=== PATIENT | male | born 1980 | race Caucasian/White ===

== ENCOUNTER 2024-10-04 10:54 | Inpatient (IN) | payer OTHER ==
[2024-10-04] MEDS ORDERED: LORazepam 2 MG/ML INJ IV PRN (11:17)
[2024-10-04] MEDS: SODIUM CHLORIDE 0.9% 1,000 ML IV STA ×2 (11:27→12:18)
[2024-10-04] MEDS: LORazepam 2 MG/ML INJ IV STA (11:28)
[2024-10-04] MEDS: ONDANSETRON 4 MG/2 ML VIAL IVP STA (11:31)
[2024-10-04 11:46] LABS: Basophils # (A) 0.1 k/uL (0-0.2); Basophils % (A) 1 %; Eosinophils # (A) 0.2 k/uL (0-0.7); Eosinophils % (A) 3 %; HCT 45.3 % (39.0-53.0); HGB 15.5 gm/dL (13.0-17.5); Lymphocytes # (A) 1.1 k/uL (1.0-4.8); Lymphocytes % (A) 15 %; MCH 38.5 pg (25.0-35.0); MCHC 34.3 g/dL (31.0-37.0); MCV 112.4 fL (80.0-100.0); Macrocytosis Marked; Mean Platelet Volume 9.9; Monocytes # (A) 0.2 k/uL (0-1.0); Monocytes % (A) 3 %; Neutrophils # (A) 5.8 k/uL (1.3-7.7); Neutrophils % (A) 77 %; RBC 4.03 m/uL (4.30-5.90); RDW 14.4 % (11.5-15.5); WBC 7.4 k/uL (3.8-10.6)
[2024-10-04 11:54] LABS: ALT 22 U/L (4-49); AST 56 U/L (17-59); African American GFR (CKD) >90 (>60 ml/min/1.73 sqM); Albumin 4.7 g/dL (3.5-5.0); Alcohol 18 mg/dL; Alkaline Phosphatase 77 U/L (38-126); Anion Gap 16 mmol/L; Blood Urea Nitrogen 8 mg/dL (9-20); Calcium 9.2 mg/dL (8.4-10.2); Carbon Dioxide 22 mmol/L (22-30); Chloride 97 mmol/L (98-107); Glucose 88 mg/dL (74-99); Non-African American GFR(CKD) >90 (>60 ml/min/1.73 sqM); Sodium 135 mmol/L (137-145); Total Bilirubin 1.5 mg/dL (0.2-1.3); Total Protein 7.2 g/dL (6.3-8.2)
[2024-10-04 12:09] LABS: Platelet Count 89 k/uL (150-450)
[2024-10-04] MEDS ORDERED: NALOXONE 0.4 MG/ML 1 ML VIAL IV PRN (13:12)
[2024-10-04] MEDS ORDERED: IBUPROFEN 400 MG TAB PO PRN (13:12)
[2024-10-04] MEDS ORDERED: ONDANSETRON 4 MG/2 ML VIAL IVP PRN (13:12)
--- NOTE | 2024-10-04 13:14 | ED ---
General Adult HPI - General Chief complaint: Psychiatric Symptoms Stated complaint: Mental health Time Seen by Provider: 10/04/24 10:55 Source: patient, RN notes reviewed, old records reviewed Mode of arrival: ambulatory Limitations: no limitations - History of Present Illness Initial comments: Patient is a 44-year-old male who presents emergency department for suicidal ideations. Was brought in by his father. Has a history of scleroderma. Has been having suicidal ideations as well as states he thought about cutting himself in the neck however he was too shaky when he attempted it. Has a very superficial abrasion to the left neck but no other obvious injuries. States he did this yesterday or the day before. Does drink alcohol every day. Believes he is going through withdrawals. Denies any hallucinations however patient's father was concern for hallucinations for the patient. He denies any homicidal ideations, attempts, plans. Patient states he hears voices. Presents for further evaluation at this time. - Related Data Home Medications Medication Instructions Recorded Confirmed No Known Home Medications 10/04/24 10/04/24 Allergies Allergy/AdvReac Type Severity Reaction Status Date / Time No Known Allergies Allergy Verified 10/04/24 14:16 Review of Systems ROS Statement: Those systems with pertinent positive or pertinent negative responses have been documented in the HPI. Review of Systems: CONST: Denies fever EYES: Denies blurry vision ENT: Denies nasal congestion C/V: Denies Chest pain RESP: Denies shortness of breath GI: Denies abdominal pain : Denies dysuria SKIN: Denies rash. MSK: Denies joint pain. NEURO: Denies headache ROS Other: All systems not noted in ROS Statement are negative. Past Medical History Past Medical History: Rheumatoid Arthritis (RA) History of Any Multi-Drug Resistant Organisms: None Reported Past Surgical History: No Surgical Hx Reported Past Psychological History: Anxiety Smoking Status: Current every day smoker Past Alcohol Use History: Heavy Past Drug Use History: Marijuana General Exam - General Exam Comments Initial Comments: General: Appears in acute alcohol withdrawals. Tremors, tongue fasciculations, tachycardia. HEAD: Normal with no signs of head trauma. EYES: PERRLA, EOMI, conjunctiva normal, no discharge. Pulls are 3 mm and equal bilaterally. ENT: Hearing grossly intact, normal oropharynx. RESPIRATORY: Clear breath sounds bilaterally. No wheezes, rales, or rhonchi. C/V: Regular rate and rhythm. S1 and S2 auscultated, no edema, peripheral pulses 2+ and intact throughout ABD: Abd is soft, nontender, nondistended EXT: Normal range of motion, no obvious acute deformity. Patient has chronic deformities from scleroderma. SKIN: No rashes or lesions observed on exposed skin. NEURO: Alert and oriented x 4. Cranial nerves II-XII intact. No focal sensory or strength deficits. Limitations: no limitations Course Vital Signs 10/04/24 10/04/24 10/04/24 10:56 12:15 14:42 Temperature 99.1 F 98.9 F 98.7 F Pulse Rate 148 H 109 H 99 Respiratory 20 18 18 Rate Blood Pressure 147/114 166/104 142/132 O2 Sat by Pulse 97 100 98 Oximetry 10/04/24 15:22 Temperature Pulse Rate 92 Respiratory 18 Rate Blood Pressure 180/95 O2 Sat by Pulse 96 Oximetry Medical Decision Making - Medical Decision Making Was pt. sent in by a medical professional or institution (, PA, INSURANCE AGENT, urgent care, hospital, or care home...) When possible be specific @ -No Did you speak to anyone other than the patient for history (EMS, parent, family, police, friend...)? What history was obtained from this source @ -Patient's father is at bedside and assist with patient's past medical history. Did you review nursing and triage notes (agree or disagree)? Why? @ -I reviewed and agree with nursing and triage notes Were old charts reviewed (outside hosp., previous admission, EMS record, old EKG, old radiological studies, urgent care reports/EKG's, care home records)? Report findings @ -No old charts were reviewed Differential Diagnosis (chest pain, altered mental status, abdominal pain women, abdominal pain men, vaginal bleeding, weakness, fever, dyspnea, syncope, headache, dizziness, GI bleed, back pain, seizure, CVA, palpatations, mental health, musculoskeletal)? @ -Differential Mental Health Depression, anxiety, bipolar, psychosis, schizophrenia, borderline personality, situational depression, adjustment disorder, behavioral disorder, brain tumor, malingering, substance abuse, encephalopathy, medication reaction, dementia, hypothyroidism, degenerative neurologic disorder, lupus.... This is not meant to be all-inclusive list. Also includes alcohol withdrawal EKG interpreted by me (3pts min.). @ -As above X-rays interpreted by me (1pt min.). @ -None done CT interpreted by me (1pt min.). @ -None done U/S interpreted by me (1pt. min.). @ -None done What testing was considered but not performed or refused? (CT, X-rays, U/S, labs)? Why? @ -None What meds were considered but not given or refused? Why? @ -None Did you discuss the management of the patient with other professionals (professionals i.e. DrChapo, PA, INSURANCE AGENT, lab, RT, psych nurse, bilingual social worker, fast food server, teacher, motorcycle police officer, residential case manager)? Give summary @ -Discussed with the accepting physician, Dr. Hadley who accepted the admission. Was smoking cessation discussed for >3mins.? @ -No Was critical care preformed (if so, how long)? @ -No Were there social determinants of health that impacted care today? How? (Homelessness, low income, unemployed, alcoholism, drug addiction, transportation, low edu. Level, literacy, decrease access to med. care, prison, rehab)? @ -No Was there de-escalation of care discussed even if they declined (Discuss DNR or withdrawal of care, Hospice)? DNR status @ -No What co-morbidities impacted this encounter? (DM, HTN, Smoking, COPD, CAD, Cancer, CVA, ARF, Chemo, Hep., AIDS, mental health diagnosis, sleep apnea, morbid obesity)? @ -Alcohol abuse Was patient admitted / discharged? Hospital course, mention meds given and route, prescriptions, significant lab abnormalities, going to OR and other pertinent info. @ -Patient presents for mental health evaluation but also appears to be in alcohol withdrawals. Suicide precautions ordered. Sitter ordered. CIWA is greater than 10 initially. Did improve following Ativan administration. Patient also administered IV fluids. Workup remarkable for alcohol level of 18. Otherwise relatively unremarkable except for hypomagnesemia which she was given replenishment for. EKG shows no signs of acute ischemia. I did recommend admission for alcohol withdrawals and monitoring and then inpatient psychiatric evaluation. Patient and patient's father are in agreement with this plan. I spoke with the admitting provider, Dr. Hadley from [facility] who accepted the admission. Consult placed to psychiatry. Patient placed on CIWA protocol. Undiagnosed new problem with uncertain prognosis? @ -No Drug Therapy requiring intensive monitoring for toxicity (Heparin, Nitro, Insulin, Cardizem)? @ -No Were any procedures done? @ -No Diagnosis/symptom? @ -Alcohol withdrawals, suicidal ideations Acute, or Chronic, or Acute on Chronic? @ -Acute Uncomplicated (without systemic symptoms) or Complicated (systemic symptoms)? @ -Complicated Side effects of treatment? @ -No Exacerbation, Progression, or Severe Exacerbation? @ -No Poses a threat to life or bodily function? How? (Chest pain, [place], [place], pneumonia, PE, COPD, DKA, ARF, appy, cholecystitis, CVA, Diverticulitis, Homicidal, Suicidal, threat to staff... and all critical care pts) @ -Yes - Lab Data Result diagrams: 10/04/24 11:38 10/04/24 11:38 Lab Results 10/04/24 10/04/24 Range/Units 11:38 11:38 WBC 7.4 (3.8-10.6) k/uL RBC 4.03 L (4.30-5.90) m/uL Hgb 15.5 (13.0-17.5) gm/dL Hct 45.3 (39.0-53.0) % MCV 112.4 H (80.0-100.0) fL MCH 38.5 H (25.0-35.0) pg MCHC 34.3 (31.0-37.0) g/dL RDW 14.4 (11.5-15.5) % Plt Count 89 L (150-450) k/uL MPV 9.9 Neutrophils % 77 % Lymphocytes % 15 % Monocytes % 3 % Eosinophils % 3 % Basophils % 1 % Neutrophils # 5.8 (1.3-7.7) k/uL Lymphocytes # 1.1 (1.0-4.8) k/uL Monocytes # 0.2 (0-1.0) k/uL Eosinophils # 0.2 (0-0.7) k/uL Basophils # 0.1 (0-0.2) k/uL Manual Slide Review Performed Macrocytosis Marked A Sodium 135 L (137-145) mmol/L Potassium 4.0 (3.5-5.1) mmol/L Chloride 97 L (98-107) mmol/L Carbon Dioxide 22 (22-30) mmol/L Anion Gap 16 mmol/L BUN 8 L (9-20) mg/dL Creatinine 0.68 (0.66-1.25) mg/dL Est GFR (CKD-EPI)AfAm >90 (>60 ml/min/1.73 sqM) Est GFR (CKD-EPI)NonAf >90 (>60 ml/min/1.73 sqM) Glucose 88 (74-99) mg/dL Calcium 9.2 (8.4-10.2) mg/dL Magnesium 1.0 L (1.6-2.3) mg/dL Total Bilirubin 1.5 H (0.2-1.3) mg/dL AST 56 (17-59) U/L ALT 22 (4-49) U/L Alkaline Phosphatase 77 (38-126) U/L Total Protein 7.2 (6.3-8.2) g/dL Albumin 4.7 (3.5-5.0) g/dL Serum Alcohol 18 mg/dL - EKG Data -: EKG Interpreted by Me EKG Comments: 12-lead Electrocardiogram Interpretation Note EKG was reviewed and interpreted by myself. 12-lead ECG performed at 1212 is interpreted by me as revealing sinus tachycardia at a rate of 102 beats per minute. [place] is normal. [place] interval is 140 ms, QRS duration is 90 ms, QTc is 426 ms.. There were no ST or T wave abnormalities to suggest myocardial ischemia or injury. R wave progression across the precordium was satisfactory. By my interpretation this EKG is non-diagnostic for acute ischemia. Disposition Clinical Impression: Suicidal ideation, Alcohol withdrawal, Hypomagnesemia Disposition: ADMITTED IP TO THIS HOSP Condition: Stable Time of Disposition: 13:00
[2024-10-04] MEDS: MAGNESIUM SULFATE-D5W PMX 1 GM in DEXTROSE/WATER 1 100ML.BAG IVPB SCH ×2 (13:19→18:58)
[2024-10-04] MEDS: SODIUM CHLORIDE 0.9% 1,000 ML IV SCH (13:28)
--- NOTE | 2024-10-04 17:49 | P.HPIM ---
History of Present Illness H&P Date: 10/04/24 44 year old M with PMH of Scleroderma, EtOH abuse presents to the ED for suicidal ideation and alcohol withdrawal. Last drink was this morning. Drinks 1/5 hard liquor daily. He denies any headache, lower extremity edema, fever, chills, chest pain, SOB, palpitations, changes in urination or bowel habits. Reports some nausea but no vomiting. No numbness/weakness/tinging of the extremities. In the ED he underwent extensive evaluation. BP 147/114, HR 148, T 99.1F, RR 20, 97% on RA. CBC, CMP significant for RBC 4.03, MCV 112.4, Plt 89, Na 135, Cl 97, BUN 8, T. Bili 1.5. Mag 1.0. EtOH 18. EKG sinus tachycardia. Patient admitted for SI and EtOH withdrawal. General: non toxic, no distress, appears at stated age Derm: warm, dry Head: atraumatic, normocephalic, symmetric Eyes: EOMI, no lid lag, anicteric sclera Mouth: no lip lesion, mucus membranes moist Cardiovascular: S1 S2 tach. No murmurs Lungs: Clear to auscultation bilaterally, no accessory muscle use Ext: no gross muscle atrophy, no edema, contractured extremities Neuro: no focal neuro deficits Psych: Alert, oriented, appropriate affect Based on my assessment of this patient, this patient meets a high complexity level of care. EtOH withdrawal: CIWA protocol with Ativan PRN. Start Libirum 25 mg PO TID. Suicidal ideation: Suicidal precautions. Psyc consulted. Hypomagnesemia: 4g Mag sulfate x 1. Macrocytosis and Thrombocytopenia likely due to EtOH abuse CODE STATUS: FULL CODE DVT Prophylaxis: SCD GI Prophylaxis: Protonix 40 mg PO QD Designated medical POA if patient is not able to make medical decisions for themselves: I have reviewed the following talent consultant notes: ED note I have reviewed the results of the following tests: As above. I have ordered the following tests: CBC, CMP and Mag in the AM. I have discussed the care of this patient with the following independent historian: I have independently interpreted the following test below: EKG I have discussed the management of this patient with the following physician: ER provider. Past Medical History Past Medical History: Rheumatoid Arthritis (RA) History of Any Multi-Drug Resistant Organisms: None Reported Past Surgical History: No Surgical Hx Reported Past Psychological History: Anxiety Smoking Status: Current every day smoker Past Alcohol Use History: Heavy Past Drug Use History: Marijuana Medications and Allergies Home Medications Medication Instructions Recorded Confirmed Type No Known Home Medications 10/04/24 10/04/24 History Allergies Allergy/AdvReac Type Severity Reaction Status Date / Time No Known Allergies Allergy Verified 10/04/24 14:16 Physical Exam Vitals: Vital Signs Temp Pulse Resp BP Pulse Ox 10/04/24 17:20 87 18 149/92 98 10/04/24 15:22 92 18 180/95 96 10/04/24 14:42 98.7 F 99 18 142/132 98 10/04/24 12:15 98.9 F 109 H 18 166/104 100 10/04/24 10:56 99.1 F 148 H 20 147/114 97 Intake and Output 10/04/24 10/04/24 10/04/24 06:59 14:59 22:59 Other: Weight 45.359 kg Results CBC & Chem 7: 10/04/24 11:38 10/04/24 11:38 Labs: Abnormal Lab Results - Last 24 Hours (Table) 10/04/24 10/04/24 Range/Units 11:38 11:38 RBC 4.03 L (4.30-5.90) m/uL MCV 112.4 H (80.0-100.0) fL MCH 38.5 H (25.0-35.0) pg Plt Count 89 L (150-450) k/uL Macrocytosis Marked A Sodium 135 L (137-145) mmol/L Chloride 97 L (98-107) mmol/L BUN 8 L (9-20) mg/dL Magnesium 1.0 L (1.6-2.3) mg/dL Total Bilirubin 1.5 H (0.2-1.3) mg/dL
[2024-10-04] MEDS: LORazepam 2 MG/ML INJ IV PRN ×2 (19:06→23:53)
[2024-10-04] MEDS: chlordiazePOXIDE 25 MG CAP PO SCH (21:16)
[2024-10-05 00:32] LABS: Appearance,Urine Clear (Clear); Bilirubin,Urine Negative (Negative); Blood,Urine Negative (Negative); Color,Urine Yellow; Glucose,Urine (UA) Negative (Negative); Ketones,Urine Trace (Negative); Leukocyte Esterase,Urine Negative (Negative); Nitrite,Urine Negative (Negative); PH, Urine 6.5 (5.0-8.0); Protein,Urine Trace (Negative); Specific Gravity,Urine 1.017 (1.001-1.035)
[2024-10-05 00:44] LABS: Amphetamine Screen,Urine Not Detected (NotDetected); Barbiturate Screen,Urine Not Detected (NotDetected); Benzodiazepines Screen,Urine Detected (NotDetected); Cocaine Screen,Urine Not Detected (NotDetected); Methadone Screen, Urine Not Detected (NotDetected); Opiate Screen,Urine Not Detected (NotDetected); Oxycodone Screen, Urine Not Detected (NotDetected); Phencyclidine Screen,Urine Not Detected (NotDetected); Tricyclic Antidepressant,Urine Not Detected (NotDetected); Urn Cannabinoid Scrn Detected (NotDetected)
[2024-10-05] MEDS: PANTOPRAZOLE 40 MG TABLET PO SCH (06:58)
[2024-10-05 09:03] LABS: ALT 15 U/L (10-49); AST 50 U/L (14-35); Albumin 3.4 g/dL (3.8-4.9); Albumin/Globulin Ratio 2.27 Ratio (1.60-3.17); Alkaline Phosphatase 63 U/L (41-126); BUN/Creat Ratio 12.33 Ratio (12.00-20.00); Blood Urea Nitrogen 7.4 mg/dL (9.0-27.0); Carbon Dioxide 24.7 mmol/L (21.6-31.8); Chloride 101 mmol/L (96-109); Globulin 1.5 g/dL (1.6-3.3); Glucose 77 mg/dL (70-110); Potassium 3.4 mmol/L (3.5-5.5); Sodium 136 mmol/L (135-145); Total Bilirubin 1.2 mg/dL (0.3-1.2); Total Protein 4.9 g/dL (6.2-8.2)
[2024-10-05 11:23] LABS: Basophils # (A) 0.07 X 10*3/uL (0.00-0.10); Basophils % (A) 1.4 %; Eosinophils # (A) 0.23 X 10*3/uL (0.04-0.35); Eosinophils % (A) 4.6 %; HCT 36.2 % (39.6-50.0); HGB 12.4 g/dL (13.0-17.0); Immature Platelet Fraction 10.7 % (1.1-6.1); Lymphocytes # (A) 1.04 X 10*3/uL (0.90-5.00); Lymphocytes % (A) 20.6 %; MCH 38.3 pg (27.0-32.0); MCHC 34.3 g/dL (32.0-37.0); MCV 111.7 FL (80.0-97.0); Macrocytosis (M) 2+; Mean Platelet Volume 12.5 FL (9.5-12.2); Monocytes # (A) 0.34 X 10*3/uL (0.20-1.00); Monocytes % (A) 6.7 %; NRBC Per 100 WBC 0 X 10*3/uL (0.00-0.01); Neutrophils # (A) 3.34 X 10*3/uL (1.80-7.70); Neutrophils % (A) 66.3 %; Platelet Count 65 X 10*3/uL (140-440); RBC 3.24 X 10*6/uL (4.40-5.60); RDW 13.6 % (11.5-14.5); WBC 5.04 X 10*3/uL (4.50-10.00)
--- NOTE | 2024-10-05 11:46 | P.PN ---
Subjective Progress Note Date: 10/05/24 44 year old M with PMH of Scleroderma, EtOH abuse presents to the ED for suicidal ideation and alcohol withdrawal. Last drink was this morning. Drinks 1/5 hard liquor daily. He denies any headache, lower extremity edema, fever, chills, chest pain, SOB, palpitations, changes in urination or bowel habits. R eports some nausea but no vomiting. No numbness/weakness/tinging of the extremities. In the ED he underwent extensive evaluation. BP 147/114, HR 148, T 99.1F, RR 20, 97% on RA. CBC, CMP significant for RBC 4.03, MCV 112.4, Plt 89, Na 135, Cl 97, BUN 8, T. Bili 1.5. Mag 1.0. EtOH 18. EKG sinus tachycardia. Patient admitted for SI and EtOH withdrawal. 10/05 Patient was seen and examined. Sitter at bedside. CIWA 11. 2 mg of IV Ativan since admission. Currently on Librium 25 mg PO TID. CBC and CMP significant for RBC 3.24, Hg 12.4, HCT 36.2, MCV 111.7, Plt 65, K 3.4, BUN 7.4, Ca 8, AST 50, alb 3.4. Mag 2.1. BP 138/95, HR 96, RR 17, T 97.7F, 100% on RA. General: non toxic, no distress, appears at stated age Derm: warm, dry Head: atraumatic, normocephalic, symmetric Eyes: EOMI, no lid lag, anicteric sclera Mouth: no lip lesion, mucus membranes moist Cardiovascular: S1 S2 tach. No murmurs Lungs: Clear to auscultation bilaterally, no accessory muscle use Ext: no gross muscle atrophy, no edema, contractured extremities Neuro: no focal neuro deficits Psych: Alert, oriented, appropriate affect Based on my assessment of this patient, this patient meets a high complexity level of care. EtOH withdrawal: CIWA protocol with Ativan PRN. Continue Libirum 25 mg PO TID. Suicidal ideation: Suicidal precautions. Psyc consulted. Hypomagnesemia: 4g Mag sulfate x 1. Macrocytosis and Thrombocytopenia likely due to EtOH abuse CODE STATUS: FULL CODE DVT Prophylaxis: SCD GI Prophylaxis: Protonix 40 mg PO QD Designated medical POA if patient is not able to make medical decisions for themselves: I have reviewed the following product consultant notes: I have reviewed the results of the following tests: CBC, CMP, Mag. I have ordered the following tests: BMP in the AM. I have discussed the care of this patient with the following independent historian: BULMARO. I have independently interpreted the following test below: I have discussed the management of this patient with the following physician: Objective - Vital Signs Vital signs: Vital Signs Temp 97.7 F 10/05/24 07:01 Pulse 96 10/05/24 07:01 Resp 17 10/05/24 07:01 BP 138/95 10/05/24 07:01 Pulse Ox 100 10/05/24 07:01 FiO2 Intake & Output 10/04/24 10/05/24 10/05/24 18:59 06:59 18:59 Weight 45.359 kg 45.359 kg Other: Voiding Method Toilet Toilet Urinal Urinal # Voids 2 - Labs CBC & Chem 7: 10/05/24 02:51 10/05/24 02:51 Labs: Abnormal Lab Results - Last 24 Hours (Table) 10/04/24 10/04/24 10/04/24 Range/Units 11:38 11:38 23:18 RBC 4.03 L (4.30-5.90) m/uL Hgb (13.0-17.0) g/dL Hct (39.6-50.0) % MCV 112.4 H (80.0-100.0) fL MCH 38.5 H (25.0-35.0) pg Plt Count 89 L (150-450) k/uL MPV (9.5-12.2) FL Immature Plt Fraction (1.1-6.1) % Macrocytosis Marked A Macrocytosis (manual) Sodium 135 L (137-145) mmol/L Potassium (3.5-5.5) mmol/L Chloride 97 L (98-107) mmol/L BUN 8 L (9-20) mg/dL Calcium (8.7-10.3) mg/dL Magnesium 1.0 L (1.6-2.3) mg/dL Total Bilirubin 1.5 H (0.2-1.3) mg/dL AST (14-35) U/L Total Protein (6.2-8.2) g/dL Albumin (3.8-4.9) g/dL Globulin (1.6-3.3) g/dL Urine Protein (Negative) Urine Ketones (Negative) U Benzodiazepines Scrn Detected H (NotDetected) U Marijuana (THC) Screen Detected H (NotDetected) 10/04/24 10/05/24 10/05/24 Range/Units 23:18 02:51 02:51 RBC 3.24 L (4.30-5.90) m/uL Hgb 12.4 L (13.0-17.0) g/dL Hct 36.2 L (39.6-50.0) % MCV 111.7 H (80.0-100.0) fL MCH 38.3 H (25.0-35.0) pg Plt Count 65 L (150-450) k/uL MPV 12.5 H (9.5-12.2) FL Immature Plt Fraction 10.7 H (1.1-6.1) % Macrocytosis Macrocytosis (manual) 2+ A Sodium (137-145) mmol/L Potassium 3.4 L (3.5-5.5) mmol/L Chloride (98-107) mmol/L BUN 7.4 L (9-20) mg/dL Calcium 8.0 L (8.7-10.3) mg/dL Magnesium (1.6-2.3) mg/dL Total Bilirubin (0.2-1.3) mg/dL AST 50 H (14-35) U/L Total Protein 4.9 L (6.2-8.2) g/dL Albumin 3.4 L (3.8-4.9) g/dL Globulin 1.5 L (1.6-3.3) g/dL Urine Protein Trace H (Negative) Urine Ketones Trace H (Negative) U Benzodiazepines Scrn (NotDetected) U Marijuana (THC) Screen (NotDetected)
[2024-10-05] MEDS: POTASSIUM CHLORIDE ER 20 MEQ TAB.ER PO STA (12:36)
--- NOTE | 2024-10-05 14:28 | P.CN ---
Psychiatric Consult - . Consult date: 10/05/24 Consult:: 10/05/24 13:39 IDENTIFYING DATA: This patient is a 44-year-old male, , currently single, has no kids, collect Social Security disability REASON FOR REFERRAL: Psychiatry was consulted for suicidal ideations HISTORY OF PRESENT ILLNESS: The patient presented to the hospital on 10/04 for suicidal ideations with a plan to cut himself. He was brought in by his father for these concerns. He has a history of scleroderma. Patient apparently drinks alcohol daily has a history of withdrawals. According to ER report he was also endorsing hallucinations. Urine drug screen was positive for benzodiazepines and THC. Blood alcohol level was 18 on admission. Patient had a sitter at the side, his father was also at his side they both were excused from the room. Patient woke up from his nap, he appeared to have poor hygiene poor grooming. States that he knows his name, knows his age date of he knew he was in "[facility]". He knew the correct date today. He states that he needed "help". States that he has "full rage" against himself. He states that he does not know why he is not endorsing any specific stressors. He was fairly concrete, evasive during the conversation. He did mention that he was having suicidal thoughts, states that he took a knife to his neck. He claims that he does have a history when he was 19 years old when he took a gun to his head however it jammed on him. Claims that his sleep and appetite are poor, claims that he also is hearing noises no voices however, denies any visual hallucinations. Denies any homicidal ideations at this time.Patients admits to using alcohol daily drinks about a pint of vodka a day. Claims that he also smokes cigarettes, uses cannabis regularly. PAST PSYCHIATRIC HISTORY: Patient claims that he has no previous psychiatric history. Patient denies being on any psychiatric medications. Patient denies any previous psychiatric hospitalizations. Patient denies any psychiatric outpatient follow-up. Claims that he attempted suicide at the age of [age] years old by putting a gun to his head. Past Medical History: Rheumatoid Arthritis (RA) History of Any Multi-Drug Resistant Organisms: None Reported Past Surgical History: No Surgical Hx Reported Past Psychological History: Anxiety Smoking Status: Current every day smoker Past Alcohol Use History: Heavy Past Drug Use History: Marijuana ALLERGIES: as per EMR. CHEMICAL DEPENDENCY HISTORY: as per HPI. FAMILY PSYCHIATRIC/SUBSTANCE USE HISTORY: That his cousin committed suicide SOCIAL HISTORY: Patient was born and raised in [place], moved to [place] and then back to [place] later on life. States that he completed high school and did "vocational school afterwards". He states that he was in [facility] for about 10 days when he lived in [place] for possession of marijuana. States that he is single he has no kids he collect Social Security disability. MENTAL STATUS EXAM: General Appearance: Patient appears to be thin, long hair, long charles, stated age is alert, attempts to cooperate. Patient appears to have poor hygiene and grooming wearing hospital gown with poor eye contact. Behavior: Patient is calmly lying in bed without any agitated behavior. Appears timid, evasive and concrete Speech: Patient's speech is fluent and nonpressured. Soft tone of voice Mood/Affect: Patient reports their mood is "depressed and anxious", affect is congruent Suicidality/Homicidality: Patient names that he has suicidal thoughts, no specific plan at this time, denies any homicidal ideations Perceptions: Patient denies any visual hallucinations and admits to auditory hallucinations hearing noises Though content/process: There is no evidence of any delusional thought content and thought process is linear and goal-directed. [place], poverty of content Memory and concentration: AOX3, grossly intact for the purposes of this session. Can spell "WORLD" backwards Judgment and insight: Poor IMPRESSIONS: Suicidal ideations Major depressive disorder, with psychotic features Alcohol use disorder severe dependence Cannabis use disorder Nicotine dependence PLAN: -At this time patient DOES meet criteria for inpatient psychiatric admission. -Would recommend the following medication changes/additions: Continue with Librium scheduled and taper down as needed for alcohol withdrawal -CIWA protocol with PRN Ativan for alcohol withdrawal. Continue to monitor vital signs. -Continue 1:1 sitter for safety till patient is safely transferred to the mental health unit. -Cannot leave AMA at this time. Patient will need a petition and certification if attempting to leave AMA. -When medically stable, patient is eligible for transfer to a psych bed when available. -Communicated plan to patient's nurse -Psychiatry will sign off at this time -Please contact with any questions. 10/05/24 14:23
--- NOTE | 2024-10-06 12:12 | P.DS ---
Providers Date of admission: 10/04/24 13:13 Expected date of discharge: 10/06/24 Attending physician: Shahid Hadley MD Consults: 10/04/24 13:12 Consult Physician Routine Consulting Provider: [place] Consult Reason/Comments: suicidal ideations Do you want consulting provider notified?: Yes Primary care physician: Stated None Hospital Course: 44 year old M with PMH of Scleroderma, EtOH abuse presents to the ED for suicidal ideation and alcohol withdrawal. Last drink was this morning. Drinks 1/5 hard liquor daily. He denies any headache, lower extremity edema, fever, chills, chest pain, SOB, palpitations, changes in urination or bowel habits. Reports some nausea but no vomiting. No numbness/weakness/tinging of the extremities. In the ED he underwent extensive evaluation. BP 147/114, HR 148, T 99.1F, RR 20, 97% on RA. CBC, CMP significant for RBC 4.03, MCV 112.4, Plt 89, Na 135, Cl 97, BUN 8, T. Bili 1.5. Mag 1.0. EtOH 18. EKG sinus tachycardia. Patient admitted for SI and EtOH withdrawal. 10/05 Patient was seen and examined. Sitter at bedside. CIWA 11. 2 mg of IV Ativan since admission. Currently on Librium 25 mg PO TID. CBC and CMP significant for RBC 3.24, Hg 12.4, HCT 36.2, MCV 111.7, Plt 65, K 3.4, BUN 7.4, Ca 8, AST 50, alb 3.4. Mag 2.1. 10/06 Patient was seen and examined. Doing well. Hopeful plans for transfer to [facility] today. BP 124/86, HR 93, RR 17, T 98.3F, 100% on RA. General: non toxic, no distress, appears at stated age Derm: warm, dry Head: atraumatic, normocephalic, symmetric Eyes: EOMI, no lid lag, anicteric sclera Mouth: no lip lesion, mucus membranes moist Cardiovascular: Good distal perfusion in all 4 extremities Lungs: breathing comfortably, no accessory muscle use Ext: no gross muscle atrophy, no edema, contractured extremities Neuro: no focal neuro deficits Psych: Alert, oriented, appropriate affect Discharge Diagnosis: EtOH withdrawal Suicidal ideation Hypomagnesemia Macrocytosis and Thrombocytopenia likely due to EtOH abuse This complex discharge took 35 minutes to complete. Patient Condition at Discharge: Stable Plan - Discharge Summary Discharge Rx Participant: No New Discharge Prescriptions: No Action No Known Home Medications Discharge Medication List No Known Home Medications 10/04/24 [History] Follow up Appointment(s)/Referral(s): None,Stated [Primary Care Provider] - 1-2 days
[2024-10-06 14:09] VITALS: RESP 16; TEMP 98.7
[2024-10-06 16:33] VITALS: BMI 16.1
[2024-10-06 17:13] VITALS: BP 153/83; PULSE 81
== END 2024-10-06 17:12 | disposition still patient (30) | DRG 605 ==
LOC: EC 10:54 → 4SSUR 13:13
PROVIDERS: ADMIT Family Medicine; ATTEND Family Medicine
DX: S10.91XA Abrasion of unspecified part of neck, initial encounter (principal); F10.239 Alcohol dependence with withdrawal, unspecified; F32.3 Major depressive disorder, single episode, severe with psychotic features; D69.59 Other secondary thrombocytopenia; D75.89 Other specified diseases of blood and blood-forming organs; E83.42 Hypomagnesemia; F12.10 Cannabis abuse, uncomplicated; F17.210 Nicotine dependence, cigarettes, uncomplicated; F41.9 Anxiety disorder, unspecified; M06.9 Rheumatoid arthritis, unspecified; M34.9 Systemic sclerosis, unspecified; X78.1XXA Intentional self-harm by knife, initial encounter; Y99.8 Other external cause status; Y90.0 Blood alcohol level of less than 20 mg/100 ml; Z91.51 Personal history of suicidal behavior
CPT/HCPCS: 36415; 80053; 80306; 80320; 81003; 83735; 85025; 87635; 93005; 96361; 96365; 96366; 96375; 96376; 99285

== ENCOUNTER 2024-10-06 17:47 | Inpatient (IN) | payer OTHER ==
[2024-10-06] MEDS ORDERED: ACETAMINOPHEN TAB 325 MG TAB PO PRN (18:33)
[2024-10-06] MEDS ORDERED: IBUPROFEN 600 MG TAB PO PRN (18:33)
[2024-10-06] MEDS ORDERED: MAG HYDROX/AL HYDROX/SIMETH 355 ML BOTTLE PO PRN (18:33)
[2024-10-06] MEDS ORDERED: LORazepam 1 MG TAB PO PRN ×2 (18:33)
[2024-10-06] MEDS ORDERED: MAGNESIUM HYDROXIDE 2,400 MG/30 ML CUP PO PRN (18:33)
[2024-10-06] MEDS ORDERED: OLANZapine 10 MG VIAL IM PRN (18:36)
[2024-10-06] MEDS ORDERED: OLANZapine 5 MG TAB PO PRN (18:36)
[2024-10-06 19:51] VITALS: RESP 16
[2024-10-07] MEDS: NICOTINE 14MG/24HR PATCH TRANSDERM SCH (09:11)
[2024-10-07] MEDS: FOLIC ACID 1 MG TAB PO SCH (09:12)
[2024-10-07] MEDS: THIAMINE 100 MG TAB PO SCH (09:12)
[2024-10-07] MEDS: MULTIVITAMINS, THERA 1 EACH TAB PO SCH (09:12)
--- NOTE | 2024-10-07 12:26 | P.HP ---
Psychiatric H&P - . H&P Date: 10/07/24 History & Physical: Allergies Allergy/AdvReac Type Severity Reaction Status Date / Time No Known Allergies Allergy Verified 10/04/24 14:16 Vital Signs Temp 97.6 F 10/06/24 17:25 Pulse 83 10/07/24 06:55 Resp 16 10/06/24 17:25 BP 125/88 10/07/24 06:55 Pulse Ox 100 10/06/24 17:25 FiO2 Intake & Output 10/06/24 10/07/24 10/07/24 18:59 06:59 18:59 Weight 42.297 kg Laboratory Last Values TSH 1.150 mIU/L (0.465-4.680) 10/07/24 09:07 10/07/24 11:57 IDENTIFYING DATA: This patient is a 44-year-old male, , currently single, has no kids, collect Social Security disability HISTORY OF PRESENT ILLNESS: Patient was seen by senior underwriter for psychiatric consultation on 10/05 and according to psychiatric note "the patient presented to the hospital on 10/04 for suicidal ideations with a plan to cut himself. He was brought in by his father for these concerns. He has a history of scleroderma. Patient apparently drinks alcohol daily has a history of withdrawa ls. According to ER report he was also endorsing hallucinations. Urine drug screen was positive for benzodiazepines and THC. Blood alcohol level was 18 on admission. Patient had a sitter at the side, his father was also at his side they both were excused from the room. Patient woke up from his nap, he appeared to have poor hygiene poor grooming. States that he knows his name, knows his age date of he knew he was in "[facility]". He knew the correct date today. He states that he needed "help". States that he has "full rage" against himself. He states that he does not know why he is not endorsing any specific stressors. He was fairly concrete, evasive during the conversation. He did mention that he was having suicidal thoughts, states that he took a knife to his neck. He claims that he does have a history when he was 19 years old when he took a gun to his head however it jammed on him. Claims that his sleep and appetite are poor, claims that he also is hearing noises no voices however, denies any visual hallucinations. Denies any homicidal ideations at this time.Patients admits to using alcohol daily drinks about a pint of vodka a day. Claims that he also smokes cigarettes, uses cannabis regularly." Patient was seen today for psychiatric assessment. States that he is doing a little bit better in terms of his anxiety, continues to endorse depression. He was fairly cooperative with the interview answered all questions appropriately. States that he is trying to go to groups and participate. He states that he is still hearing voices mainly at nighttime. Claims that he is still having mild suicidal thoughts however no plan or intent. Denying any homicidal ideations. Claims that his sleep has been poor, appetite has been fair. Denying any visual hallucinations at this time not endorsing any paranoia or delusions. We spoke about different medication options and he is open to trying Zoloft and Seroquel at this time. PAST PSYCHIATRIC HISTORY: Patient claims that he has a history of depression. Patient denies being on any psychiatric medications. Patient denies any previous psychiatric hospitalizations. Patient denies any psychiatric outpatient follow-up. Claims that he attempted suicide at the age of [age] years old by putting a gun to his head. Past Medical History: Rheumatoid Arthritis (RA) History of Any Multi-Drug Resistant Organisms: None Reported Past Surgical History: No Surgical Hx Reported Past Psychological History: Anxiety Smoking Status: Current every day smoker Past Alcohol Use History: Heavy Past Drug Use History: Marijuana ALLERGIES: as per EMR. CHEMICAL DEPENDENCY HISTORY: as per HPI. FAMILY PSYCHIATRIC/SUBSTANCE USE HISTORY: That his cousin committed suicide SOCIAL HISTORY: Patient was born and raised in [place], moved to [place] and then back to [place] later on life. States that he completed high school and did "vocational school afterwards". He states that he was in alf for about 10 days when he lived in [place] for possession of marijuana. States that he is single he has no kids he collect Social Security disability. MENTAL STATUS EXAM: General Appearance: Patient appears to be thin, long hair, long charles, stated age is alert, attempts to cooperate. Patient appears to have poor hygiene and grooming wearing hospital gown with poor eye contact. Behavior: Patient is calmly lying in bed without any agitated behavior. Appears timid, evasive and concrete Speech: Patient's speech is fluent and nonpressured. Soft tone of voice Mood/Affect: Patient reports their mood is "depressed mainly", affect is congrue nt Suicidality/Homicidality: Patient names that he has suicidal thoughts, no specific plan at this time, denies any homicidal ideations Perceptions: Patient denies any visual hallucinations and admits to auditory hallucinations hearing noises Though content/process: There is no evidence of any delusional thought content and thought process is linear and goal-directed.focused on his sx. Memory and concentration: AOX3, grossly intact for the purposes of this session. Can spell "WORLD" backwards Judgment and insight: Poor Strengths/weaknesses: patients strength is supportive family and available housing, weakness is that patient has a long hx of depression and alcohol/substance use, poor insight. IMPRESSIONS: Suicidal ideations Major depressive disorder, with psychotic features Alcohol use disorder severe dependence Cannabis use disorder Nicotine dependence PLAN: -Patient is admitted under voluntary status to [facility]HU for stabilization of psychiatric symptoms and safety. Patient has signed adult voluntary form and medication consent and is placed in patient's chart. -Medications : Zoloft 25 mg daily for mood/anxiety, Seroquel 25 mg nightly for mood stabilization/psychosis/sleep. Continue tapering down Librium, down to 10 mg 4 times daily for alcohol withdrawal. -Ativan and Haldol PRN for agitation/aggression -Started thiamine, MVM for etoh use -CIWA protocol with Ativan PRN for ETOH withdrawal. -Patient was counselled on substance abuse and desired to cut back on use. Patient was given access line number to call for rehab. -Patient was informed of the risks, benefits and side effects of the medication and patient verbally consented to taking the medications. Patient signed med consent form and was placed in chart. -Internal Medicine consult to perform medical evaluation and physical. -NRT -nicotine patch -SW on board for discharge planning. Encourage patient to participate in groups to work on coping skills. 10/07/24 12:23
[2024-10-07] MEDS: SERTRALINE 25 MG TAB PO SCH (12:37)
[2024-10-07 15:38] VITALS: BMI 15.0
[2024-10-07] MEDS: QUEtiapine 25 MG TAB PO SCH (21:58)
[2024-10-08] MEDS ORDERED: MELATONIN 5 MG TABLET PO PRN (10:51)
--- NOTE | 2024-10-08 10:59 | P.PN ---
Progress Note - Text Progress Note Date: 10/08/24 Interval History: Patient was seen today and agreeable to speak to freelance copywriter in the office. patient signed an AMA yesterday and states that he feels like he misses his family and his cat. he feels like his depression an anxiety have been improving. He asked for various things including newspapers and writing materials. He also states that yesterday he tried to have a conversation with his father on the phone however feels that it was not "private". He states that he feels the medications have been helping not reporting any side effects at this time. States that he slept about 4 or 5 hours last night. Has been going to some groups. At this time he is denying any suicidal homicidal ideations intent or plan. Denying any auditory or visual hallucinations. MENTAL STATUS EXAM: General Appearance: Patient appears to be thin, long hair, long charles, stated age is alert, attempts to cooperate. Patient appears to have improving hygiene and grooming wearing hospital gown with improving eye contact. Behavior: Patient is calmly lying in bed without any agitated behavior. Appears timid, concrete Speech: Patient's speech is fluent and nonpressured. Soft tone of voice Mood/Affect: Patient reports their mood is "better", affect is congruent Suicidality/Homicidality: Patient names that he has suicidal thoughts, no specific plan at this time, denies any homicidal ideations Perceptions: Patient denies any visual hallucinations and auditory hallucinations Though content/process: There is no evidence of any delusional thought content and thought process is linear and goal-directed. focused on discharge. Memory and concentration: AOX3, grossly intact for the purposes of this session Judgment and insight: Poor, improving mildly IMPRESSIONS: Suicidal ideations Major depressive disorder, with psychotic features Alcohol use disorder severe dependence Cannabis use disorder Nicotine dependence PLAN: -Patient is admitted under voluntary status to [facility] for stabilization of psychiatric symptoms and safety. Patient has signed adult voluntary form and medication consent and is placed in patient's chart. -Medications : increase Zoloft 50 mg daily for mood/anxiety, Seroquel 25 mg nightly for mood stabilization/psychosis/sleep. Continue tapering down Librium, down to 10 mg 3 times daily for alcohol withdrawal, last dose scheduled for friday am. melatonin 5 mg qhs prn for insomnia. start naltrexone 50 mg daily for etoh cravings. -Ativan and Haldol PRN for agitation/aggression -CIWA protocol with Ativan PRN for ETOH withdrawal. -NRT -nicotine patch -SW on board for discharge planning. Encourage patient to participate in groups to work on coping skills. hopeful for discharge friday if patient is improving. he still has not called the access line for rehab.
--- NOTE | 2024-10-08 18:38 | P.CONS ---
History of Present Illness - Reason for Consult Consult date: 10/08/24 - History of Present Illness 44 year old M with PMH of Scleroderma, EtOH abuse initially presented to the ED for suicidal ideation and alcohol withdrawal. He was placed on CIWA protocol and given Ativan as needed. He was transferred to the [facility] on 10/05. 10/08 Patient was seen and examined. Reports no complaints. A1c 5.3. TSH 1.15. BP 126/92, HR 82, RR 16, T 98.1F, 99% on RA. General: non toxic, no distress, appears at stated age Derm: warm, dry Head: atraumatic, normocephalic, symmetric Eyes: EOMI, no lid lag, anicteric sclera Mouth: no lip lesion, mucus membranes moist Cardiovascular: S1 S2 reg. No murmurs Lungs: Clear to auscultation bilaterally, no accessory muscle use Ext: no gross muscle atrophy, no edema, contractured extremities Neuro: no focal neuro deficits Psych: Alert, oriented, appropriate affect Based on my assessment of this patient, this patient meets a high complexity level of care. EtOH withdrawal: CIWA protocol with Ativan PRN. Continue Libirum 10 mg PO TID. Macrocytosis and Thrombocytopenia likely due to EtOH abuse I have reviewed the following rn lactation consultant notes: Psyc note. I have reviewed the results of the following tests: A1c, TSH I have ordered the following tests: I have discussed the care of this patient with the following independent historian: I have independently interpreted the following test below: I have discussed the management of this patient with the following physician: Past Medical History Past Medical History: Rheumatoid Arthritis (RA) Additional Past Medical History / Comment(s): scleroderma History of Any Multi-Drug Resistant Organisms: None Reported Past Surgical History: No Surgical Hx Reported Past Anesthesia/Blood Transfusion Reactions: No Reported Reaction Past Psychological History: Anxiety Smoking Status: Current every day smoker Past Alcohol Use History: Heavy Past Drug Use History: Marijuana Medications and Allergies Home Medications Medication Instructions Recorded Confirmed Type No Known Home Medications 10/04/24 10/06/24 History Allergies Allergy/AdvReac Type Severity Reaction Status Date / Time No Known Allergies Allergy Verified 10/04/24 14:16 Physical Exam Vitals: Vital Signs Temp Pulse Resp BP Pulse Ox 10/08/24 06:00 98.1 F 82 16 126/92 99
[2024-10-09 06:55] VITALS: TEMP 97.7
[2024-10-09] MEDS: SERTRALINE 50 MG TAB PO SCH (11:12)
[2024-10-09] MEDS: NALTREXONE HCL 50 MG TAB PO SCH (11:12)
--- NOTE | 2024-10-09 13:24 | P.PN ---
Progress Note - Text Progress Note Date: 10/09/24 Interval history: Patient was seen in the hallway after having a visit with his Dad and was dir ectable and agreeable to speak with screen writer. He reports feeling "excellent" particularly after spending time with his Dad. He describes sleeping well and feels better since admission. When asked about his plans after discharge he shared his desire to return home with his parents and participate in AA. He previously had engaged with AA as a support but had a situation in which his sponsor and mother were dating. The sponsor broke Mr. Arriaga's trust by sharing information with his mother. We explored whether rehab might be a good option, and he seemed open to this but was not committal about a plan to investigate further. We briefly discussed his alcohol consumption prior to admission. He explained it was a part of his daily "habits" and something he often did without even thinking about it. Discussed the role of Naltrexone in helping to decrease alcohol craving. At this time patient denies any suicidal or homicidal ideations intent or plan. Denies any auditory or visual hallucinations. Patient denies any side effects from the medications and has been compliant with meds. Mental status exam: General Appearance: Patient appears to be stated age is alert, directable, and cooperative. Behavior: No agitated behavior. Patient is calm and directable Speech: Patient's speech is fluent and nonpressured. Mood/Affect: Mood is "excellent", affect is congruent and euthymic. Suicidality/Homicidality: Patient denies having any suicidal or homicidal ideation intent or plan. Perceptions: Patient denies any auditory or visual hallucinations. Though content/process: There is no evidence of any delusional thought content and thought process is linear and goal-directed. Memory and concentration: AOX3, grossly intact for the purposes of this session Judgment and insight: questionable insight regarding alcohol use disorder Assessment/Plan: Continue with current diagnoses: Suicidal ideation, major depressive disorder with psychotic features, alcohol use disorder-severe, cannabis use disorder, nicotine dependence Patient continues to meet criteria for inpatient psychiatric admission for symptom stabilization and safety. Patient will be maintained on current psychotropic medication regimen: Zoloft 50 mg daily, Seroquel 25 mg at bedtime for mood/psychosis/sleep, Librium 10 mg TID for alcohol withdrawal (last dose tomorrow AM), Melatonin 5 mg QHS PRN insomnia, and Naltrexone 50 mg daily for alcohol craving Monitor for medication compliance and for any psychotropic medication side effects. Will continue to monitor ongoing response to treatment. Encouraged participation in milieu.
--- NOTE | 2024-10-10 14:41 | P.PN ---
Progress Note - Text Interval history: Patient was seen at the bedside and was directable and agreeable to speak with grant writer. He describes his mood today as "good". He has not been having any alcohol craving. He explained that seeing alcohol or someone smoking a cigarette while watching a show or movie certainly brings it back to his mind but he has not felt preoccupied with thoughts about when he will have his next drink. Additionally he does plan to return home after discharge and engage in AA he seems less interested in pursuing rehab after this hospitalization. At this time patient denies any suicidal or homicidal ideations intent or plan. Denies any auditory or visual hallucinations. Patient denies any side effects from the medications and has been compliant with meds. Mental status exam: General Appearance: Patient appears to be stated age is alert, directable, and cooperative. Behavior: No agitated behavior. Patient is calm and directable Speech: Patient's speech is fluent and nonpressured. Mood/Affect: Mood is "good", affect is congruent and constricted. Suicidality/Homicidality: Patient denies having any suicidal or homicidal ideation intent or plan. Perceptions: Patient denies any auditory or visual hallucinations. Though content/process: There is no evidence of any delusional thought content and thought process is linear and goal-directed. Memory and concentration: AOX3, grossly intact for the purposes of this session Judgment and insight: questionable insight regarding alcohol use disorder Assessment/Plan: Continue with current diagnoses: Suicidal ideation, major depressive disorder with psychotic features, alcohol use disorder-severe, cannabis use disorder, nicotine dependence Patient continues to meet criteria for inpatient psychiatric admission for symptom stabilization and safety. Patient will be maintained on current psychotropic medication regimen: Zoloft 50 mg daily, Seroquel 25 mg at bedtime for mood/psychosis/sleep, Librium 10 mg TID for alcohol withdrawal (last dose was this morning), Melatonin 5 mg QHS PRN insomnia, and Naltrexone 50 mg daily for alcohol craving Monitor for medication compliance and for any psychotropic medication side effects. Will continue to monitor ongoing response to treatment. Encouraged participation in milieu.
[2024-10-11 07:06] VITALS: BP 125/85; PULSE 97
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
== END 2024-10-11 15:05 | disposition home or self-care (01) | DRG 885 ==
LOC: 3MHU 18:21
PROVIDERS: ADMIT Psychiatry & Neurology Psychiatry; ATTEND Psychiatry & Neurology Psychiatry
DX: F32.3 Major depressive disorder, single episode, severe with psychotic features (principal); R45.851 Suicidal ideations; F10.239 Alcohol dependence with withdrawal, unspecified; F12.10 Cannabis abuse, uncomplicated; F17.210 Nicotine dependence, cigarettes, uncomplicated; M34.9 Systemic sclerosis, unspecified; G47.00 Insomnia, unspecified; M06.9 Rheumatoid arthritis, unspecified; F41.9 Anxiety disorder, unspecified; Y90.0 Blood alcohol level of less than 20 mg/100 ml
CPT/HCPCS: 83036; 84443